=== PATIENT | male | born 1990 | race Caucasian/White ===

== ENCOUNTER 2025-04-15 19:42 | Emergency (ER) | payer MEDICAID, SELFPAY ==
[2025-04-15 19:45] VITALS: PULSE 90; RESP 18; O2SAT 99
[2025-04-15 19:47] VITALS: BMI 29.7
--- NOTE | 2025-04-15 19:49 | EDNOTE_ITS ---
ED General RME/HPI General Chief complaint: Alcohol Stated complaint: ALCOHOL INTOXICATION Time Seen by Provider: 04/15/25 19:49 Arrival date/time: 04/15/25 19:42 CC: Alcohol intoxication HPI patient presents to the ER with stable vital signs. Patient is slurred speech is animated. Patient states he is HIV positive and has been very vague in how regularly he has been taking his medications. Patient denies fever chills shortness of breath or difficulty breathing. EMS report that PD given him option of going with them or with EMS. Hence the arrival to our ER. Patient is answering all questions appropriately with slurred speech. No specific complaints at this time. Related Data Previous Rx's ?Medication ?Instructions ?Recorded ibuprofen 800 mg tablet 800 mg PO TID PRN pain #30 t abs 09/13/21 azithromycin 250 mg tablet See Rx Instructions PO .COM PLEX #6 04/26/23 (Zithromax Z-Travis) tabs montelukast 10 mg tablet 10 mg PO QDAY #30 tabs 04/26 (Singulair) pseudoephedrine HCl 30 mg tablet 30 mg PO Q12HR #14 ta bs 04/26/23 (Sudafed) amoxicillin 875 mg-potassium 1 tab PO BID Pneumonia #1 4 tabs 10/30/23 clavulanate 125 mg tablet Allergies Allergy/AdvReac Type Severity Reaction Status Date / Time No Known Allergies Allergy Verified 04/26/23 09:42 Review of Systems Review of Systems Narrative Review of Systems: GEN: No fever, no chills, no weight loss EYES: No discharge, no visual changes, no pain HEENT: No ear pain, no congestion, no sore throat PULM: No shortness of breath, no cough, no congestion CV: No chest pain, no dyspnea on exertion, no palpitations GI: No nausea, no vomiting, no diarrhea, no pain, no constipation : No frequency, no urgency, no dysuria MUSC/SKEL: No joint pain, no back pain SKIN: No rash PSYCH: No hallucinations, no depression HEME/LYMPH: No easy bleeding or bruising tendencies NEURO: No weakness, no headache ED Exam Narrative Physical exam: [General: Not in any acute distress Head normocephalic HEENT: Within acceptable limits Neck is supple nontender Chest equal chest rise nontender to palpation Respiratory: Clear to auscultation no wheezes crackles or rubs CV: Rate rhythm is regular no murmurs rubs or clicks Abdomen is soft nontender no masses positive bowel sounds all 4 quadrants Back: No CVA tenderness no spinous process tenderness from cervical spine thoracic and lumbar spine Skin: Intact no petechiae rash induration ulceration or crepitus Extremities: Moving all extremities against resistance cap refill less than 2 seconds neurosensory intact Neuro: Awake alert oriented x3 Glascow coma 15 no focal deficits] Course Course Course Narrative: Patient is able to ambulate was eating food, as well as throwing it, and conversing with nurses. At the 2109, brother showed up will discharge the patient to the brother's care. Quality Measures none Orders Category Date Time Status Saline [Insert IV] NOW Care 04/15/25 19:53 Active Alcohol, Blood Medical Stat Lab 04/15/25 20:03 Completed CBC Stat Lab 04/15/25 20:03 Completed CMP [Comprehensive Metabolic Panel] Stat Lab 04/15/25 20:03 Completed Lipase Stat Lab 04/15/25 20:03 Completed Folic Acid Inj Med 04/15/25 19:53 Discontinued 1 mg IVP X1 ONE Sodium Chloride 0.9% 1000 ml [Ns] 1,000 ml Med 04/15/25 20:04 Discontinued IV 999 mls/hr Thiamine Inj [Vitamin B-1 Inj] 250 mg Med 04/15/25 19:54 Discontinued Sodium Chloride 0.9% [Ns] 100 ml IV X1 Vital Signs Vital signs: Vital Signs Temperature 98.0 F 04/15/25 20:06 Pulse Rate 110 H 04/15/25 20:06 Respiratory Rate 17 04/15/25 20:06 Blood Pressure 122/92 H 04/15/25 20:06 Pulse Oximetry (%) 95 04/15/25 20:06 Oxygen Delivery Method Room Air 04/15/25 20:06 Discharge Plan Plan Patient Disposition: HOME (Self Care) Patient condition on transfer: Stable Prescriptions/Referrals Prescriptions/Med Rec: No Action ibuprofen 800 mg tablet 800 mg PO TID PRN (Reason: pain) Qty: 30 0RF amoxicillin-pot clavulanate 875-125 mg tablet 1 tab PO BID Qty: 14 0RF pseudoephedrine HCl [Sudafed] 30 mg tablet 30 mg PO Q12HR Qty: 14 0RF azithromycin [Zithromax Z-Travis] 250 mg tablet See Rx Instructions PO .COMPLEX Qty: 6 0RF Rx Instructions: take 500 mg today (day 1), then 250 mg for 4 days (days 2-5) montelukast [Singulair] 10 mg tablet 10 mg PO QDAY Qty: 30 0RF Referrals: No Primary/Family,Physician [Primary Care Provider] - In 1 week Toñito Mason MD [Physician, Family Practice] - In 1 week Problem List Clinical Impression: Alcoholic intoxication Patient/Caregiver Discharge Instructions Education Materials: Alcoholism: Getting Help Print Language: Welsh Stand Alone Forms: Izabella Award Info., Patient Portal Info Letter PA/SENIOR CATERING SALES MANAGER Supervising Physician PA/SENIOR CATERING SALES MANAGER Supervising Physician: Ben Tenorio ENP [facility] Clinical Information Provided by: patient and EMS Medical Records reviewed [facility] and EMS Meds/Rx considered, not ordered None Labs/Rad/Tests considered, not ordered None Chronic Illness/Social Conditions Explain: HIV EKG EKG not done Labs Labs: interpreted by ma Lab(s) Interpretation(s): CBC shows no acute leukocytosis and H&H of 12.7 and 37.5 respectively with platelets at 133 yeah CMP shows sodium 149 chloride of 110 AST of 37. Alcohol level of 296. Medication Administration(s) Medication Administration History Discontinued Medications Folic Acid (Folic Acid Inj 1 Mg/0.2 Ml) 1 mg IVP X1 ONE Stop: 04/15/25 19:54 Last Admin: 04/15/25 20:24 Dose: 1 mg Documented By: MARELY Thiamine HCl 250 mg/ Sodium (Chloride) 102.5 mls @ 205 mls/hr IV X1 ONE Stop: 04/15/25 20:23 Last Admin: 04/15/25 20:21 Dose: 205 mls/hr Documented By: MARELY Sodium Chloride (Ns) 1,000 mls @ 999 mls/hr IV .Q1H1M ONE Stop: 04/15/25 21:04 Last Admin: 04/15/25 20:23 Dose: 999 mls/hr Documented By: MARELY
[2025-04-15 20:06] VITALS: BP 122/92; PULSE 110; RESP 17; TEMP 36.7; O2SAT 95
[2025-04-15 20:11] LABS: Basophils # (Auto) 0.0 Thou/mm3 (0.0-0.2); Basophils % (Auto) 0 % (0-2.5); Eosinophils # (Auto) 0.1 Thou/mm3 (0.0-0.5); Eosinophils % (Auto) 1 % (0-10); Hematocrit 37.5 % (41.0-53.0); Hemoglobin 12.7 g/dL (13.5-16.0); Immature Granulocytes Auto 0.00 Thou/mm3 (0.00-0.00); Lymphocytes # (Auto) 1.8 Thou/mm3 (1.0-4.8); Lymphocytes % (Auto) 47 % (10-50); Mean Corpuscular HGB Conc 33.9 g/dl (31.0-37.0); Mean Corpuscular Hemoglobin 28.7 pg (25.0-35.0); Mean Corpuscular Volume 85 fL (80-100); Monocytes # (Auto) 0.5 Thou/mm3 (0.0-0.8); Monocytes % (Auto) 13 % (0-12); Neutrophils # (Auto) 1.4 Thou/mm3 (1.8-7.7); Neutrophils % (Auto) 38 % (37-80); Nucleated Red Blood Cell # 0.00 Thou/mm3 (0.00-0.00); Nucleated Red Blood Cell % 0 /100 WBC (0); Platelet Count 133 Thou/mm3 (140-440); RDW Standard Deviation 43.0 fL (35.1-43.9); Red Blood Count 4.43 Miln/mm3 (4.50-5.90); White Blood Count 3.8 Thou/mm3 (3.8-10.6)
[2025-04-15] MEDS: THIAMINE INJ 250 MG in SODIUM CHLORIDE 0.9% 100 ML 205 MG IV (20:21)
[2025-04-15] MEDS: SODIUM CHLORIDE 0.9% 1000 ML 1,000 ML 999 ML IV (20:23)
[2025-04-15] MEDS: FOLIC ACID INJ 1 MG/0.2 ML IVP (20:24)
--- NOTE | 2025-04-15 20:30 | PC.NURSE ---
pt ncontinues to get out of bed. Unsteady on his feet. Pt easily redirectecd back to bed. pt given a sandwich and juice.
[2025-04-15 20:38] LABS: Alanine Aminotransferase 44 U/L (10-49); Albumin, Serum 4.4 gm/dL (3.5-5.0); Albumin/Globulin Ratio 1.3 (1.2-2.2); Alcohol, Blood Medical 296.2 mg/dL (0-10.0); Alkaline Phosphatase 58 U/L (46-116); Anion Gap 13 (7-16); Aspartate Amino Transferase 37 U/L (0-34); BUN/Creatinine Ratio 10 Ratio (12-20); Bilirubin,Total 0.2 mg/dL (0.3-1.2); Blood Urea Nitrogen 12 mg/dL (9-23); Calcium 9.0 mg/dL (8.3-10.6); Calcium (Corrected) 9.0 mg/dL (8.5-10.1); Carbon Dioxide 26.4 mMol/L (20.0-31.0); Chloride 110 mMol/L (98-107); Creatinine (Component) 1.2 mg/dL (0.6-1.3); Estimated Creatinine Clearance 91.0 mL/min (>60); Globulin 3.5 gm/dL (2.3-3.5); Glucose 90 mg/dL (74-106); Lipase 32 U/L (12-53); Osmolality,Calculated 295 (275-295); Potassium 3.8 mMol/L (3.4-5.1); Sodium 149 mMol/L (136-145); Total Protein 7.9 gm/dL (5.7-8.2); eGFR > 60 See Note
--- NOTE | 2025-04-15 20:45 | PC.NURSE ---
called pts moms phone. Pts brother answered and said they were looking for him.
[2025-04-15 21:15] VITALS: BP 128/77; PULSE 88; RESP 18; TEMP 31.6; O2SAT 97
== END 2025-04-15 21:46 | disposition home or self-care (01) ==
PROVIDERS: Registered Nurse General Practice; Emergency Provider Emergency Medicine
DX: F10.129 Alcohol abuse with intoxication, unspecified (principal); Y90.8 Blood alcohol level of 240 mg/100 ml or more
CPT/HCPCS: 36415; 80053; 80320; 83690; 85025; 96365; 96375; 99283; J3411; J3490; J7030; J7050; G0480